=== PATIENT | female | born 1980 | race Caucasian/White ===

== ENCOUNTER 2018-06-14 17:00 | Emergency (ER) | payer MEDICAID ==
[~2018-06-14] VITALS: Ht 149.9 cm; Wt 75.0 kg
[2018-06-14 17:03] VITALS: Ht 149.9 cm; Wt 75.0 kg
[2018-06-14] MEDS ORDERED: LISINOPRIL10 MG PO (17:05)
[2018-06-14] MEDS ORDERED: K-TAB10 MEQ PO (17:06)
[2018-06-14 18:16] LABS: BASOPHILS 0.3 % (0-2); EOSINOPHILS 4.8 % (0-7); HEMATOCRIT 38.1 % (36.0-48.0); IMMATURE GRANULOCYTES 0.1 % (0-5); LYMPHOCYTES 40.5 % (15-50); MCH 33.1 pg (26.0-34.0); MCHC 34.1 g/dL (31.0-37.0); MCV 96.9 fL (80.0-100.0); MEAN PLATELET VOLUME 9.3 fL (7.4-10.4); MONOCYTES 5.2 % (2-11); NEUTROPHILS 49.1 % (40-80); PLATELET COUNT 266 10x3/uL (130-400); RBC 3.93 10x6/uL (4.00-5.40); RDW 13.3 % (11.5-14.5); WBC 9.6 10x3/uL (4.8-10.8)
[2018-06-14 18:25] LABS: APPEARANCE SL CLDY (CLEAR); COLOR YELLOW (YELLOW); SPECIFIC GRAVITY 1.015 (1.005-1.020)
[2018-06-14 18:26] LABS: BILIRUBIN NEGATIVE (NEGATIVE); GLUCOSE NEGATIVE (NEGATIVE); KETONE NEGATIVE (NEGATIVE); NITRITE POSITIVE (NEGATIVE); PROTEIN NEGATIVE (NEGATIVE); UROBILINOGEN NORMAL (NORMAL)
[2018-06-14 18:27] LABS: BACTERIA MANY /hpf (NONE SEEN); RED CELLS - URINE 0-5 /hpf (0-5); WHITE CELLS - URINE 0-5 /hpf (0-5)
[2018-06-14 18:31] LABS: ALBUMIN 3.7 g/dL (3.4-5.0); ALKALINE PHOSPHATASE 38 U/L (46-116); ALT (SGPT) 13 U/L (10-68); CALC OSMOLALITY 279 mosm/kg (275-300); CALCIUM 8.9 mg/dL (8.5-10.1); CARBON DIOXIDE 24.5 mmol/L (21.0-32.0); CHLORIDE - SERUM 104 mmol/L (98-107); CREATININE - SERUM 0.7 mg/dL (0.6-1.3); GLUCOSE 98 mg/dL (74-106); POTASSIUM - SERUM 3.8 mmol/L (3.5-5.1); PROTEIN - SERUM 7.1 g/dL (6.4-8.2); SODIUM 140 mmol/L (136-145); UREA NITROGEN 14 mg/dL (7-18); eGFR NON AFRICAN AMERICAN > 90 mL/min (90-120)
[2018-06-14] MEDS ORDERED: TORADOL10 MG PO (19:28)
[2018-06-14] MEDS ORDERED: FLOMAX0.4 MG PO (19:28)
[2018-06-14 19:51] VITALS: BP 115/67
== END 2018-06-14 19:51 | disposition home or self-care (01) ==
LOC: D.ER 17:00
PROVIDERS: Emergency Medicine
DX: N39.0 Urinary tract infection, site not specified (principal)

== ENCOUNTER 2018-08-11 20:06 | Emergency (ER) | payer MEDICAID ==
[~2018-08-11] VITALS: Ht 149.9 cm; Wt 77.3 kg
[~2018-08-11 20:06] MED LIST: FLOMAX0.4 MG PO; K-TAB10 MEQ PO; LISINOPRIL10 MG PO; TORADOL10 MG PO
[2018-08-11 20:20] VITALS: Ht 149.9 cm; Wt 77.3 kg
[2018-08-11 20:59] LABS: APPEARANCE CLEAR (CLEAR); BILIRUBIN NEGATIVE (NEGATIVE); COLOR YELLOW (YELLOW); GLUCOSE NEGATIVE (NEGATIVE); KETONE NEGATIVE (NEGATIVE); NITRITE POSITIVE (NEGATIVE); PROTEIN NEGATIVE (NEGATIVE); SPECIFIC GRAVITY 1.015 (1.005-1.020); UROBILINOGEN NORMAL (NORMAL)
[2018-08-11 21:00] LABS: BACTERIA MANY /hpf (NONE SEEN); EPITHELIAL CELLS 0-5 /hpf (0-5); WHITE CELLS - URINE 0-5 /hpf (0-5)
[2018-08-11 22:51] LABS: BASOPHILS 0.2 % (0-2); EOSINOPHILS 4.2 % (0-7); HEMATOCRIT 35.6 % (36.0-48.0); HEMOGLOBIN 12.1 g/dL (12-16); IMMATURE GRANULOCYTES 0.1 % (0-5); LYMPHOCYTES 42.5 % (15-50); MCH 32.9 pg (26.0-34.0); MCV 96.7 fL (80.0-100.0); MEAN PLATELET VOLUME 9.8 fL (7.4-10.4); MONOCYTES 6.8 % (2-11); NEUTROPHILS 46.2 % (40-80); PLATELET COUNT 262 10x3/uL (130-400); RBC 3.68 10x6/uL (4.00-5.40); RDW 12.8 % (11.5-14.5); WBC 9.9 10x3/uL (4.8-10.8)
[2018-08-11 23:08] LABS: ALBUMIN 3.4 g/dL (3.4-5.0); ANION GAP 13.1 mmol/L (8-16); BILIRUBIN - TOTAL 0.35 mg/dL (0.2-1.3); CALCIUM 8.6 mg/dL (8.5-10.1); CARBON DIOXIDE 26.5 mmol/L (21.0-32.0); CREATININE - SERUM 0.9 mg/dL (0.6-1.3); POTASSIUM - SERUM 3.6 mmol/L (3.5-5.1); PROTEIN - SERUM 6.7 g/dL (6.4-8.2)
[2018-08-12] MEDS ORDERED: HYDROCODON-ACE1 EAC2 PO (00:24)
[2018-08-12] MEDS ORDERED: FLOMAX0.4 MG PO (00:24)
[2018-08-12 00:27] LABS: HCG URINE NEGATIVE (NEGATIVE)
[2018-08-12 00:50] VITALS: BP 125/81
== END 2018-08-12 00:50 | disposition home or self-care (01) ==
LOC: D.ER 20:06
PROVIDERS: Family Medicine
DX: N20.1 Calculus of ureter (principal); R10.9 Unspecified abdominal pain; N13.30 Unspecified hydronephrosis